=== PATIENT | male | born 1965 | race Caucasian/White ===

== ENCOUNTER 2018-02-28 09:13 | Emergency (ER) | payer OTHER ==
[2018-02-28 09:23] VITALS: BP 127/76; PULSE 90; TEMP 97.3; BMI 32.3
[2018-02-28] MEDS ORDERED: BACITRACIN 15 GM TUBE TOPICAL OINTMENT TP ONE (10:05)
[2018-02-28] MEDS ORDERED: SULFAMETHOXAZOLE/TRIMETHOPRIM 800MG/160MG D.S. TABLET PO ONE (10:05)
[2018-02-28] MEDS ORDERED: BACITRACIN 15 GM TUBE TOPICAL OINTMENT ONE (10:08)
[2018-02-28] MEDS ORDERED: SULFAMETHOXAZOLE/TRIMETHOPRIM 800MG/160MG D.S. TABLET ONE (10:08)
--- NOTE | 2018-02-28 10:10 | PDOC ---
History of Present Illness - General Chief Complaint: Abscess Boil Stated Complaint: NECK PAIN History Source: Patient Exam Limitations: No Limitations - History of Present Illness Initial Comments: 02/28/18 10:09 Patient came to emergency department for evaluation of worsened swelling and lesion to back of his neck. States went to [place] last week, developed a rash. Was seen by his PMD and given multiple creams for same. States progressively worsened where he was unable to sleep last night for pain and swelling. Denies fever, denies history of abscesses or lesions. Patient is diabetic. Timing/Duration: reports: other, getting worse Location: reports: scalp Respiratory Risk Factors: reports: no cause identified Past History - Travel Traveled outside of the country in the last 30 days: No Close contact w/someone who was outside of country & ill: No - Past Medical History Allergies/Adverse Reactions: Allergies Allergy/AdvReac Type Severity Reaction Status Date / Time No Known Allergies Allergy Verified 02/28/18 09:19 Home Medications: Ambulatory Orders Sulfamethoxazole/Trimethoprim [Bactrim *Ds*] 1 each PO BID #14 tablet 02/28/18 COPD: No Diabetes: Yes - Surgical History Appendectomy: Yes - Suicide/Smoking/Psychosocial Hx Smoking History: Never smoked Review of Systems - Review of Systems Able to Perform ROS?: Yes Is the patient limited Turkish proficient: Yes Constitutional: Yes: Symptoms Reported, See HPI, Malaise. No: Fever HEENTM: Yes: See HPI. No: Symptoms Reported Integumentary: Yes: Symptoms Reported, See HPI, Erythema, Lesions Neurological: Yes: Symptoms reported, See HPI, Headache All Other Systems: Reviewed and Negative *Physical Exam - Vital Signs Last Vital Signs Temp Pulse Resp BP Pulse Ox 97.3 F L 90 19 127/76 97 02/28/18 09:20 02/28/18 09:20 02/28/18 09:20 02/28/18 09:20 02/28/18 09:20 - Physical Exam General Appearance: Yes: Nourished, Appropriately Dressed, Apparent Distress, Mild Distress HEENT: positive: DERIC, Normal ENT Inspection, TMs Normal, Pharynx Normal Neck: positive: Tender, Supple, Lymphadenopathy (R), Other (2 cm erythematous tender pointing lesion to midpoint back, consistent with abscess and folliculitis.) Respiratory/Chest: positive: Lungs Clear, Normal Breath Sounds Gastrointestinal/Abdominal: positive: Soft Integumentary: positive: Normal Color, Erythema, Swelling Neurologic: positive: coil placer II-XII NML intact, Fully Oriented, Alert, Normal Mood/ Affect, Normal Response, Motor Strength 5/5 Procedures - Incision and Drainage I&D Site: Bilateral: Other (midpoint neck) Betadine cleansed: Yes Blade Size: 11 Complications: none Dressing: Yes Progress Note - Progress Note Progress Note: Abscess incised and drained, large amount of purulent drainage return, culture sent. Started on Bactrim *DC/Admit/Observation/Transfer Diagnosis at time of Disposition: Abscess of neck - Discharge Dispostion Disposition: HOME Condition at time of disposition: Stable Decision to Admit order: No - Prescriptions Prescriptions: Sulfamethoxazole/Trimethoprim [Bactrim *Ds*] 1 each PO BID #14 tablet - Referrals Referrals: Arik Pagan MD [Primary Care Provider] - - Patient Instructions Printed Discharge Instructions: DI for Incision and Drainage of a Skin Abscess Additional Instructions: Rest, keep area elevated. Avoid strenuous activity or exercise until wound is healed Use hot soaks to area to bring more blood to the surface and encourage drainage May change dressings as needed to keep clean - Allow water from shower to wash area thoroughly for 2-3 minutes, and pat dry upon exit of shower and replace dressing. Change his dressing daily until the wound is completely healed. May use Tylenol or Motrin for mild pain relief Use stronger medications as directed and prescribed Continue all medications as prescribed Followup with private physician in 2-3 days for wound check Return to emergency Department for worsening swelling, pain, redness, fevers as needed - Post Discharge Activity Forms/Work/School Notes: Back to Work
== END 2018-02-28 10:39 | disposition home or self-care (01) ==
LOC: JERFT 09:13
PROC: 0J940ZZ Drainage of Right Neck Subcutaneous Tissue and Fascia, Open Approach (ICD-10-PCS; principal; 2018-02-28)
DX: L02.11 Cutaneous abscess of neck (principal); L73.8 Other specified follicular disorders
CPT/HCPCS: 87070; 87186; 87205; 99282-25

== ENCOUNTER 2021-12-24 08:34 | Emergency (ER) | payer OTHER ==
[2021-12-24 08:52] VITALS: BP 131/79; PULSE 98; TEMP 98.1; BMI 29.0
[2021-12-24] MEDS ORDERED: DIPHTH,PERTUSS(ACELL),TET 0.5 ML DISP.SYRIN IM ONE ×2 (09:14→09:15)
== END 2021-12-24 10:33 | disposition home or self-care (01) ==
LOC: JERFT 08:34
PROC: 3E0234Z Introduction of Serum, Toxoid and Vaccine into Muscle, Percutaneous Approach (ICD-10-PCS; principal; 2021-12-24)
DX: S61.012A Laceration without foreign body of left thumb without damage to nail, initial encounter (principal); W31.2XXA Contact with powered woodworking and forming machines, initial encounter
CPT/HCPCS: 73140-TC-LT-FY; 90715; 99284-25

== ENCOUNTER 2022-01-02 16:58 | Emergency (ER) | payer OTHER ==
[2022-01-02 17:18] VITALS: BP 126/66; PULSE 91; TEMP 97.9; BMI 29.0
== END 2022-01-02 17:50 | disposition home or self-care (01) ==
LOC: JERFT 16:58
DX: Z48.02 Encounter for removal of sutures (principal)
CPT/HCPCS: 99281-25

== ENCOUNTER 2023-05-13 10:21 | Emergency (ER) | payer OTHER ==
[2023-05-13 10:24] VITALS: BP 125/77; PULSE 104; RESP 18; TEMP 98.2; BMI 30.3
[2023-05-13] MEDS ORDERED: KETOROLAC TROMETHAMINE 30 MG/1 ML VIAL IM ONE (11:08)
[2023-05-13] MEDS ORDERED: KETOROLAC TROMETHAMINE 60 MG/2 ML VIAL ONE (11:19)
== END 2023-05-13 12:05 | disposition home or self-care (01) ==
LOC: JERFT 10:21
PROC: 3E0233Z Introduction of Anti-inflammatory into Muscle, Percutaneous Approach (ICD-10-PCS; principal; 2023-05-13)
DX: S86.912A Strain of unspecified muscle(s) and tendon(s) at lower leg level, left leg, initial encounter (principal); M25.562 Pain in left knee; X50.0XXA Overexertion from strenuous movement or load, initial encounter; Y99.0 Civilian activity done for income or pay
CPT/HCPCS: 73562-TC-LT-FY; 99284-25